=== PATIENT | male | born 1985 | race American Indian/Alaskan Native ===

== ENCOUNTER 2018-04-18 09:17 | Emergency (ER) | payer SELFPAY ==
[2018-04-18] MEDS ORDERED: ZOFRAN ODT PO ONE (11:29)
--- NOTE | 2018-04-18 11:45 | Emergency Department Report ---
Blank Doc - Documentation Documentation: Patient is a 32-year-old Citizen Of [place] female past medical history of alcohol and cocaine abuse who presented stating he wants to get help with these addictions. Patient states he has not had a drink or use cocaine in the last 24 hours. Patient states his SYMPTOMS MILD NAUSEA. PATIENT DENIES ANY HALLUCINATIONS CHEST PAIN SHORTNESS OF BREATH VOMITING ABDOMINAL PAIN AT THIS TIME.
[2018-04-18 12:09] LABS: Basophils # (Auto) 0.1 K/mm3 (0.0-0.1); Basophils % (Auto) 0.7 % (0.0-1.8); Eosinophils # (Auto) 0.3 K/mm3 (0.0-0.4); Eosinophils % (Auto) 3.7 % (0.0-4.3); Hematocrit 43.5 % (35.5-45.6); Hemoglobin 14.9 gm/dl (11.8-15.2); Lymphocytes # (Auto) 3.4 K/mm3 (1.2-5.4); Lymphocytes % (Auto) 39.4 % (13.4-35.0); Mean Corpuscular HGB Conc 34 % (32-34); Mean Corpuscular Hemoglobin 34 pg (28-32); Mean Corpuscular Volume 98 fl (84-94); Monocytes % (Auto) 11.7 % (0.0-7.3); Platelet Count 312 K/mm3 (140-440); Red Blood Count 4.42 M/mm3 (3.65-5.03); Red Cell Distribution Width 13.5 % (13.2-15.2)
[2018-04-18 12:10] LABS: Bilirubin,Urine NEG (Negative); Blood,Urine NEG (Negative); Color,Urine Yellow (Yellow); Mucus,Urine FEW /HPF; Protein,Urine <15 mg/dL mg/dL (Negative); WBC,Urine < 1.0 /HPF (0.0-6.0)
[2018-04-18 12:14] LABS: Alanine Aminotransferase 11 units/L (7-56); Albumin 3.9 g/dL (3.9-5); BUN/Creatinine Ratio 13; Blood Urea Nitrogen 10 mg/dL (9-20); Calcium 9.3 mg/dL (8.4-10.2); Hemolysis Index 10
[2018-04-18 12:17] LABS: Methadone Screen,Urine PRESUMPTIVE NEGATIVE; Opiate Screen,Urine PRESUMPTIVE NEGATIVE
--- NOTE | 2018-04-18 12:22 | Emergency Department Report ---
HPI - General Chief Complaint: Medical Clearance Time Seen by Provider: 04/18/18 11:11 - HPI HPI: 32-year-old male presents to the emergency department hoping that he can get some assistance to get inpatient detox and rehabilitation for his history of alcohol and cocaine abuse. He says that he last drank any alcohol or used any drugs yesterday. On top of the cocaine he does admit to taking some other "pills." He went to [facility] this morning and says that he was really having withdrawal symptoms at that time but was told that he needed to come get medical clearance. Currently he just complains of some nausea and "the shakes." His only past medical history is asthma. He denies any visual or auditory hallucinations. He denies any history of withdrawal seizures. ED Past Medical Hx - Past Medical History Previous Medical History?: Yes Hx Asthma: Yes - Surgical History Past Surgical History?: No - Social History Smoking Status: Current Every Day Smoker Substance Use Type: Alcohol, Cocaine, Marijuana - Medications Home Medications: Home Medications Medication Instructions Recorded Confirmed Last Taken Type No Known Home Medications [No 04/18/18 04/18/18 Unknown History Reported Home Medications] ED Review of Systems ROS: Stated complaint: WITHDRAWLS Other details as noted in HPI Comment: All other systems reviewed and negative Constitutional: denies: chills, fever Eyes: denies: eye pain, eye discharge, vision change ENT: denies: ear pain, throat pain Respiratory: denies: cough, shortness of breath, wheezing Cardiovascular: denies: chest pain, palpitations Gastrointestinal: nausea. denies: vomiting Musculoskeletal: myalgia. denies: joint swelling Skin: denies: rash, lesions Neurological: denies: headache, numbness Physical Exam - Physical Exam Vital Signs: Vital Signs 04/18/18 04/18/18 10:06 11:39 Temperature 97.9 F Pulse Rate 56 L Respiratory 20 18 Rate Blood Pressure 108/77 [Left] O2 Sat by Pulse 98 Oximetry Physical Exam: GENERAL: The patient is well-developed well-nourished. HENT: Normocephalic. Atraumatic. Patient has moist mucous membranes. EYES: Extraocular motions are intact. Pupils equal reactive to light bilaterally. NECK: Supple. Trachea is midline. CHEST/LUNGS: Clear to auscultation. There is no respiratory distress noted. HEART/CARDIOVASCULAR: Regular. There is no tachycardia. There is no murmur. ABDOMEN: Abdomen is soft, nontender. Patient has normal bowel sounds. There is no abdominal distention. SKIN: Skin is warm and dry. NEURO: The patient is awake, alert, and oriented. The patient is cooperative. The patient has no focal neurologic deficits. The patient has normal speech. MUSCULOSKELETAL: There is no tenderness or deformity. There is no limitation range of motion. There is no evidence of acute injury. ED Course Vital Signs 04/18/18 04/18/18 10:06 11:39 Temperature 97.9 F Pulse Rate 56 L Respiratory 20 18 Rate Blood Pressure 108/77 [Left] O2 Sat by Pulse 98 Oximetry ED Medical Decision Making - Lab Data Result diagrams: 04/18/18 11:39 04/18/18 11:39 - Medical Decision Making Patient presents asking for help, detox/rehabilitation, for alcohol and cocaine. Urine drug screen is also positive for marijuana and amphetamines. Blood alcohol level is negative. Currently the patient does not show any significant signs of withdrawal. Vital signs stable. He has been given some IV fluid resuscitation including vitamins and thiamine. The patient is not meeting criteria for [facility] inpatient stabilization program. However he was seen by the psych assessment team who has placed him on the board for possible voluntary inpatient detox/rehabilitation. For now, he will remain in the emergency department until there is placement and we will continue to monitor. Critical Care Time: No Critical care attestation.: If time is entered above; I have spent that time in minutes in the direct care of this critically ill patient, excluding procedure time. ED Disposition Clinical Impression: History of alcohol abuse, History of alcohol dependence, History of cocaine abuse Disposition: [id number]/TX-70 ANOTHER TYPE HLTHCARE Is pt being admited?: No Condition: Stable Referrals: PRIMARY CARE, [Primary Care Provider] - 3-5 Days Time of Disposition: 15:19
[2018-04-18] MEDS ORDERED: VITAMIN B-1 100 MG, FOLVITE 1 MG, INFUVITE 10 ML in NACL 0.9% 1000 ML 1,000 ML IV ONE (12:30)
[2018-04-18 12:31] LABS: Amphetamine Screen,Urine PRESUMPTIVE POSITIVE; Benzodiazepines Screen,Urine PRESUMPTIVE POSITIVE; Cannabinoid Screen,Urine PRESUMPTIVE POSITIVE; Cocaine Screen,Urine PRESUMPTIVE POSITIVE
--- NOTE | 2018-04-18 14:23 | Consultation ---
History of Present Illness - Reason for Consult Consult date: 04/18/18 Reason for consult: Initial Psychiatric Evaluation - Chief Complaint Chief complaint: " Withdrawal from drugs." - History of Present Psychiatric Illness Patient is a 32 year old male who presents to the emergency room with a history of alcohol and cocaine abuse. Patient verbalizes that he wants to get help with his addiction. Patient reports a PPHx of ADD (2017). He states that his fianc is and he needs to get help with his addiction. Patient reports that he drinks alcohol daily and frequently does cocaine and downers (Xanax and Percocet). He has decrease sleep, energy, and appetite. He denies SI/HI and A/VH . Paranoid thoughts, mood fluctuations, and being easily irritated/agitated were reported. He verbalizes " the [facility] is out to get me." He endorses the following withdrawal symptoms: anxiety , diaphoresis, restlessness, irritability, and poor concentration. Current Psychiatric Medications: Patient denies current psychiatric medications. Past Psychiatric History: ADD(2017); No inpatient psychiatric hospitalizations ; No outpatient psychiatrist; No previous suicide attempts; No rehabs. Past Psychiatric Medication Trials: Adderall- " I didn't like the way it made me feel." Drug/Alcohol Abuse History: Cocaine, amount and frequency - 2 to 3 times weekly , last use-04/17/2018, first use-age 17; Percocet, amount and frequency- 1 to 2 times weekly, first use-age 18; Alcohol, amount and frequency-daily, last use , first use age 16. UDS positive for amphetamines, benzodiazepines, cocaine, and marijuana. Social history: Some college; lives with kaley; poor support system-family located in [place]; 2 sons and one on the way. Family history: Brother-committed suicide. Medications and Allergies Allergies Allergy/AdvReac Type Severity Reaction Status Date / Time No Known Allergies Allergy Unverified 04/18/18 09:41 Home Medications Medication Instructions Recorded Confirmed Last Taken Type No Known Home Medications [No 04/18/18 04/18/18 Unknown History Reported Home Medications] Active Meds: Active Medications Thiamine HCl 100 mg/ Folic Acid 1 mg/ Multivitamins/Minerals 10 ml/ Sodium Chloride 1,011.2 mls @ 250 mls/hr IV ONCE ONE Stop: 04/18/18 16:32 Last Admin: 04/18/18 13:56 Dose: 250 mls/hr Mental Status Exam - Vital signs Last Vital Signs Temp 97.9 F 04/18/18 10:06 Pulse 42 L 04/18/18 14:00 Resp 18 04/18/18 14:00 BP 115/70 04/18/18 14:00 Pulse Ox 97 04/18/18 14:00 - Exam Narrative exam: Mental status exam: Gen. appearance: Casually dressed Eye contact: Intermittent Attitude/behavior: Cooperative Sensorium: Distracted Orientation: Drowsy but oriented 4 (person, place, time, date, situation) Psychomotor and Musculoskeletal activity: Laying in bed Mood: "desperate" Affect: Appropriate Speech/language: Regular rate and tone Thought process: Circumstantial Thought content: Reality oriented. No delusions noted Perception: Within normal limits. Patient denies auditory/visual/tactile hallucinations Suicidal ideations/plan: Patient denies Homicidal ideations/plan: Patient denies Judgment: Variable Insight: Fair Results Result Diagrams: 04/18/18 11:39 04/18/18 11:39 Abnormal lab results 04/18/18 04/18/18 04/18/18 Range/Units 11:39 11:39 11:39 MCV 98 H (84-94) fl MCH 34 H (28-32) pg Lymph % (Auto) 39.4 H (13.4-35.0) % Mckinley % (Auto) 11.7 H (0.0-7.3) % Mckinley # 1.0 H (0.0-0.8) K/mm3 Chloride 97.3 L (98-107) mmol/L Salicylates < 0.3 L (2.8-20.0) mg/dL Acetaminophen (10.0-30.0) ug/mL 04/18/18 Range/Units 11:39 MCV (84-94) fl MCH (28-32) pg Lymph % (Auto) (13.4-35.0) % Mckinley % (Auto) (0.0-7.3) % Mckinley # (0.0-0.8) K/mm3 Chloride (98-107) mmol/L Salicylates (2.8-20.0) mg/dL Acetaminophen < 5.0 L (10.0-30.0) ug/mL All other labs normal. Assessment and Plan Assessment and plan: Impression: Patient is a 32-year-old -[place] male who presents to the emergency room with polysubstance abuse. PPHx ADD. Today patient presents drowsy but oriented. He endorses paranoia, mood fluctuations, and being easily irritated/agitated. He denies suicidal/homicidal ideations and auditory/visual/ tactile hallucinations. UDS positive for amphetamines, benzodiazepine, cocaine , and marijuana. DDx: Drug induced psychosis r/o Mood Disorder with psychotic features Recommendations/plan: 1. Will gain collateral to determine proper disposition. 2. Will place on a CIWA protocol for polysubstance abuse.
[2018-04-19] MEDS ORDERED: BENADRYL PO ONE (04:13)
[2018-04-19 07:19] VITALS: BP 100/57
--- NOTE | 2018-04-19 13:52 | Progress Note ---
Subjective - Reason for Consult Consult date: 04/19/18 Reason for consult: Psychiatry Follow-up - Chief Complaint Chief complaint: "I want help" 32 year old male who presents to the emergency room with a history of alcohol and cocaine abuse. Today the patient is calm and cooperative during the assessment. He stated that he needed to be medically cleared by the ER so he can check himself into to [facility]. He stated that he need to get his life together so he can be a better father. He stated using recreational drugs because its been part of his life for years. He denies a mood/psychotic do. He denies any manic episodes and erratic sleep. He stated not drinking (etoh ) for several days. He stated that he can't remember taking a benzo. He denies SI/HI's and AVH's. Mental Status Exam - Vital signs Last Vital Signs Temp 98.0 F 04/19/18 07:19 Pulse 55 L 04/19/18 07:00 Resp 21 04/19/18 07:00 BP 100/57 04/19/18 07:00 Pulse Ox 94 04/19/18 07:00 - Exam Narrative exam: MSE: Appearance: calm, cooperative Behavior: regular eye contact Speech: regular rate and tone Mood: "okay" Affect: congruent to mood Thought Process: linear Thought Content: denies SI/HI's and AVH's Motor Activity: lying in bed Cognition: A/O x 3 Insight: appropriate Judgment: appropriate Assessment and Plan Impression: Substance Use DO (amphetamines/cocaine). Cannabis Use DO. Today the patient is calm and cooperative during the assessment. The patient is positive for benzos. No acute withdrawals noted. DDx: R/O Mood DO Recommendation/Plan: The patient plan to follow up at [facility] for outpatient rehab services. Also, the patient was given outpatient rehab services for [facility].
== END 2018-04-19 14:56 | disposition other institution (70) ==
LOC: ED 09:17
DX: F10.20 Alcohol dependence, uncomplicated (principal); F14.10 Cocaine abuse, uncomplicated; F12.10 Cannabis abuse, uncomplicated; F17.200 Nicotine dependence, unspecified, uncomplicated
CPT/HCPCS: 36415; 80053; 80307; 81001; 85025; 96365; 99284; G0480; J3411; J7030; 80320; Q0162